=== PATIENT | male | born 1990 ===

== ENCOUNTER → 2017-09-16 | Emergency (ER) | payer OTHER ==
[~2017-09-16] VITALS: Ht 175.3 cm; Wt 79.4 kg
[~2017-09-16] MED LIST: GILTUSS TR TAB1 EACH PO; KETO10TA2 PO; ORPHENADRINE C100 MG PO; ZYRTEC10 MG PO
== END | disposition home or self-care (01) ==
LOC: ER 22:46
DX: S30.1XXA Contusion of abdominal wall, initial encounter (principal); V49.9XXA Car occupant (driver) (passenger) injured in unspecified traffic accident, initial encounter; Y93.89 Activity, other specified; Y92.488 Other paved roadways as the place of occurrence of the external cause; Y99.8 Other external cause status